=== PATIENT | female | born 1990 | race Caucasian/White ===

== ENCOUNTER 2017-04-03 19:11 | Emergency (ER) | payer OTHER ==
[2017-04-03 20:07] VITALS: BP 128/70
--- NOTE | 2017-04-03 20:40 | UC ---
Throat Pain/Nasal [place] HPI - HPI Summary HPI Summary: 26 yo female with sore throat x 3 days no fever no CHAVEZ or myalgias - History of Current Complaint Chief Complaint: UCGeneralIllness Stated Complaint: ST SINCE SUNDAY Time Seen by Provider: 04/03/17 20:06 Hx Obtained From: Patient Hx Last Menstrual Period: 12/16/13 Onset/Duration: Sudden Onset, Lasting Days Severity: Moderate Pain Intensity: 4 Pain Scale Used: 0-10 Numeric Cough: None - Epiglottits Risk Factors Epiglottis Risk Factors: Negative - Allergies/Home Medications Allergies/Adverse Reactions: Allergies Allergy/AdvReac Type Severity Reaction Status Date / Time No Known Allergies Allergy Verified 04/03/17 20:08 Home Medications: Home Medications Buprenorphine/Naloxone SL TAB* [Suboxone 8-2 mg SL TAB*] 0.25 tab SL QID [History Confirmed 04/03/17] PMH/Surg Hx/FS Hx/Imm Hx Previously Healthy: Yes - Surgical History Surgical History: Yes Surgery Procedure, Year, and Place: Right oopherectomy and tube removed s/p ectopic, 2010. Bowel obstruction - Family History Known Family History: Positive: Hypertension - Social History Alcohol Use: Rare Substance Use Type: None Substance Use Comment - Amount & Last Used: previous use of oxycodone Smoking Status (MU): Heavy Every Day Tobacco Smoker Type: Cigarettes Amount Used/How Often: 1/2 ppd Household Exposure Type: Cigarettes - Immunization History Most Recent Influenza Vaccination: 10/2013 Review of Systems Constitutional: Negative Skin: Negative Eyes: Negative ENT: Sore Throat Respiratory: Negative Cardiovascular: Negative Gastrointestinal: Negative Genitourinary: Negative Motor: Negative Neurovascular: Negative Musculoskeletal: Negative Neurological: Negative Psychological: Negative All Other Systems Reviewed And Are Negative: Yes Physical Exam Triage Information Reviewed: Yes Appearance: Well-Appearing, No Pain Distress, Well-Nourished Vital Signs: Initial Vital Signs Temp 98.3 F 04/03/17 20:05 Pulse 66 04/03/17 20:05 Resp 14 04/03/17 20:05 BP 128/70 04/03/17 20:05 Pulse Ox 99 04/03/17 20:05 Vital Signs Reviewed: Yes Eyes: Positive: Conjunctiva Clear ENT: Positive: Pharyngeal erythema. Negative: Nasal congestion, Nasal drainage , Tonsillar exudate, Trismus, Muffled/hoarse voice Dental: Positive: Other: - upper plate Neck: Positive: Supple, Nontender, No Lymphadenopathy Respiratory: Positive: Lungs clear, Normal breath sounds, No respiratory distress Cardiovascular: Positive: RRR, No Murmur Musculoskeletal Exam: Normal Neurological: Positive: Alert Psychological Exam: Normal Skin Exam: Normal Throat Pain/Nasal Course/Dx - Differential Dx/Diagnosis Provider Diagnoses: acute pharyngitis Discharge - Discharge Plan Condition: Stable Disposition: HOME Patient Education Materials: Pharyngitis (ED) Referrals: Non Staff,Doctor [Primary Care Provider] - Additional Instructions: recheck in 4 days if not better
== END 2017-04-03 21:21 | disposition home or self-care (01) ==
LOC: UCCORT 19:11
DX: J02.9 Acute pharyngitis, unspecified (principal); F17.210 Nicotine dependence, cigarettes, uncomplicated
CPT/HCPCS: 87651; 99201; G0463

== ENCOUNTER 2017-04-14 18:33 | Emergency (ER) | payer OTHER ==
[2017-04-14 19:02] VITALS: BP 112/55
--- NOTE | 2017-04-14 19:19 | UC ---
Skin Complaint HPI - HPI Summary HPI Summary: 26 y/o female presents to the urgent care c/o a bold spot on her scalp her noticed this morning. Pt states she Recently Dx with viral pharyngitis 1 week ago, strep was negative. She has a mild CHAVEZ 12/08. Pt is concern about lupus and possible thyroid condition. She reports she was Dx with hypothyrodism 5 years ago was taking medication, but after her thyroid levels were normal and DR told her to stop medication 3 years ago. Since then she hasn't done any blood work. Pt states she has an appt with PCP DR Daksha Membreno in 2 weeks, but would like blood work done today to r/o lupus. Pt also states she has myalgia and mild join pain. Denies fever, SOB, chest pain, N/V/D, urinary symptoms. - History of Current Complaint Chief Complaint: UCSkin Time Seen by Provider: 04/14/17 19:09 Stated Complaint: CHAVEZ,BODYACHES,SCALP COMPLAINT Hx Obtained From: Patient Hx Last Menstrual Period: 3 years ?: No Onset/Duration: Sudden Onset, Lasting Days, Still Present Skin Exposure Onset/Duration: Days Ago Timing: Constant Onset Severity: Mild Current Severity: Mild Pain Intensity: 0 Pain Scale Used: 0-10 Numeric Location: Other - Bold spot in the scalp Aggravating: Nothing Alleviating: Nothing Associated Signs & Symptoms: Negative: Nausea, Vomiting, Numbness, Thirst, Fever , Chills, Tenderness, Joint Swelling Related History: Other: - Hx of hypothyrodism - Allergy/Home Medications Allergies/Adverse Reactions: Allergies Allergy/AdvReac Type Severity Reaction Status Date / Time Acetaminophen Allergy Dizziness Verified 04/14/17 19:04 Review of Systems Constitutional: Negative, Other - body aches, Skin: Other - bold spot in the scalp Eyes: Negative ENT: Sore Throat Respiratory: Negative Cardiovascular: Negative Gastrointestinal: Negative Genitourinary: Negative Motor: Negative Neurovascular: Negative Musculoskeletal: Negative Neurological: Headache - mild All Other Systems Reviewed And Are Negative: Yes PMH/Surg Hx/FS Hx/Imm Hx Previously Healthy: Yes Endocrine History: Hypothyroidism Respiratory History: Asthma - Surgical History Surgical History: Yes Surgery Procedure, Year, and Place: Right tube removed s/p ectopic, 2010. Bowel obstruction - Family History Known Family History: Positive: Cardiac Disease, Hypertension, Other Family History: Lupus - Social History Occupation: Employed Full-time Lives: With Family Alcohol Use: None Substance Use Type: None Substance Use Comment - Amount & Last Used: previous use of oxycodone Smoking Status (MU): Heavy Every Day Tobacco Smoker Type: Cigarettes Amount Used/How Often: 1/2 ppd Household Exposure Type: Cigarettes - Immunization History Most Recent Influenza Vaccination: 10/2013 Physical Exam Triage Information Reviewed: Yes Appearance: Well-Appearing, No Pain Distress, Well-Nourished, Thin Vital Signs: Initial Vital Signs Temp 98.1 F 04/14/17 18:51 Pulse 67 04/14/17 18:51 Resp 18 04/14/17 18:51 BP 112/55 04/14/17 18:51 Pulse Ox 100 04/14/17 18:51 Vital Signs Reviewed: Yes Eye Exam: Normal Eyes: Positive: Conjunctiva Clear - PERRLA, EOMI, fundi grossly normal ENT Exam: Normal ENT: Positive: Normal ENT inspection, Hearing grossly normal, Pharyngeal erythema - bilaterally no exudate, TMs normal, Tonsillar swelling Dental Exam: Normal Neck exam: Normal Neck: Positive: Supple, Nontender, No Lymphadenopathy Respiratory Exam: Normal Respiratory: Positive: Chest non-tender, Lungs clear, Normal breath sounds Cardiovascular Exam: Normal Cardiovascular: Positive: RRR, No Murmur, Pulses Normal, Brisk Capillary Refill Abdominal Exam: Normal Abdomen Description: Positive: Nontender, No Organomegaly, Soft. Negative: CVA Tenderness (R), CVA Tenderness (L) Bowel Sounds: Positive: Present Musculoskeletal Exam: Normal Musculoskeletal: Positive: Strength Intact, ROM Intact, No Edema Neurological Exam: Normal Psychological Exam: Normal Skin: Positive: Other - Postive patchy hair loss at the coronal area of the scalp. No erythema, swelling, no central clearing or scaling, non tender on palpation, no demarcated border observed, no exclamation point hairs observed. Course/Dx - Course Course Of Treatment: 26 y/o female presents to the urgent care c/o a bold spot on her scalp her noticed this morning. Pt states she Recently Dx with viral pharyngitis 1 week ago, strep was negative. She has a mild CHAVEZ 3/10. Pt is concern about lupus and possible thyroid condition. She reports she was Dx with hypothyrodism 5 years ago was taking medication, but after her thyroid levels were normal and told her to stop medication 3 years ago. Since then she hasn't done any blood work. Pt states she has an appt with PCP DR Daksha Membreno in 2 weeks, but would like blood work done today to r/o lupus. Pt also states she has myalgia and mild join pain. Denies fever, SOB, chest pain, N/V/D, urinary symptoms. Hx obtained. PE abnormal findings: Head: Postive patchy hair loss at the coronal area of the scalp. No erythema, swelling , no central clearing or scaling, non tender on palpation, no demarcated border observed, no exclamation point hairs observed. Most likely Alopecia. ENT: Positive: Normal ENT inspection, Hearing grossly normal, Pharyngeal erythema - bilaterally no exudate, TMs normal, Tonsillar swelling. Pt recently Dx with Viral pharyngitis. Pt advised to take ibuprofen OTC prn to alleviate symptom of pharyngitis. increase fluid intake and rest. Alopecia: Pt advised to f/u with her PCP DR Daksha Membreno for further evaluation, blood work in her hypothyrodism. Pt understood and agreed. Left the clinic ambulating. - Differential Diagnoses - Skin Complaint Differential Diagnoses: Allergic Reaction, Eczema, Tinea, Urticaria, Other - Alopecia areata, tinea capitis, - Diagnoses Provider Diagnoses: 1- Alopecia. 2-Viral pharyngitis - Physician Notification/Consults Discussed Patient Care With: Rubin Holder - Dr Holder agreed with Pt's care and treatment Discharge - Discharge Plan Condition: Stable Disposition: HOME Patient Education Materials: Pharyngitis (ED) Referrals: [facility] [Outside] - 2 Weeks Non Staff,Doctor [Primary Care Provider] - Additional Instructions: PLease take ibuprofen prn q6-8hrs to alleviate symptoms of viral pharyngitis, increase fluid intake and rest. For your Alopecia f/u with you PCP DR Daksha Morrow for further evaluation and treatment.
== END 2017-04-14 19:50 | disposition home or self-care (01) ==
LOC: UCCORT 18:33
DX: L65.9 Nonscarring hair loss, unspecified (principal); J02.8 Acute pharyngitis due to other specified organisms; E03.9 Hypothyroidism, unspecified; J45.909 Unspecified asthma, uncomplicated; F17.210 Nicotine dependence, cigarettes, uncomplicated
CPT/HCPCS: 99211; G0463

== ENCOUNTER 2017-06-29 21:13 | Emergency (ER) | payer OTHER ==
--- NOTE | 2017-06-29 21:18 | UC ---
Pediatric Resp HPI - HPI Summary HPI Summary: 26 YEAR OLD FEMALE PRESENTS WITH COMPLAINS OF COUGH, NASAL CONGESTION, AND SORE THROAT. - History Of Current Complaint Stated Complaint: SORE THROAT,PRODUCTIVE COUGH Time Seen by Provider: 06/29/17 21:18 Hx Obtained From: Patient Onset/Duration: Sudden Onset Timing: Intermittent, Lasting: Severity Initially: Moderate Severity Currently: Moderate Location: Nose, Throat Character: Dry Cough Aggravating Factor(s): Nothing - Allergies/Home Medications Allergies/Adverse Reactions: Allergies Allergy/AdvReac Type Severity Reaction Status Date / Time Acetaminophen Allergy Dizziness Verified 06/29/17 21:31 Home Medications: Home Medications Benzocaine/Menthol GLORIA* [Chloraseptic GLORIA*] 1 [place] Q2H PRN 06/29/17 [History Confirmed 06/29/17] Past Medical History Respiratory History: Yes: Asthma Chronic Illness History: No: Diabetes - Family History Family History: Lupus Review Of Systems Constitutional: Negative Eyes: Negative ENT: Throat Pain Cardiovascular: Negative Respiratory: Cough Gastrointestinal: Negative Genitourinary: Negative Musculoskeletal: Negative Skin: Negative Neurological: Negative Psychological: Negative All Other Systems Reviewed And Are Negative: Yes Physical Exam Triage Information Reviewed: Yes Vital Signs Reviewed: Yes Appearance: Well-Appearing Eyes: Positive: Normal ENT: Positive: Pharyngeal erythema, Nasal congestion, Nasal drainage Abdomen Description: Positive: Soft, Nontender, 4, No Organomegaly Neurological: Positive: Normal Psychological: Positive: Normal Pediatric Resp Course/Dx - Differential Dx/Diagnosis Provider Diagnoses: PHARYNGITIS. POST NASAL DRIP Discharge - Discharge Plan Condition: Stable Disposition: HOME Prescriptions: GuaiFENesin DM* [Robitussin DM*] 5 ml PO Q6H PRN #120 ml PRN Reason: Cough LoraTADine TAB(NF) [Claritin 10 MG TAB(NF)] 10 mg PO DAILY #30 tab Patient Education Materials: Allergic Rhinitis (ED), Allergies (ED) Referrals: Non Staff,Doctor [Medical Doctor] - Respiratory Complaint HPI - HPI Summary HPI Summary: 26 YEAR OLD FEMALE PRESENTS WITH COMPLAINS OF COUGH, NASAL CONGESTION, AND SORE THROAT. - History of Current Complaint Chief Complaint: UCGeneralIllness Stated Complaint: SORE THROAT,PRODUCTIVE COUGH Time Seen by Provider: 06/29/17 21:18 Hx Obtained From: Patient Hx Last Menstrual Period: states she hasn't had one in years Pain Intensity: 0 Pain Scale Used: 0-10 Numeric - Allergies/Home Medications Allergies/Adverse Reactions: Allergies Allergy/AdvReac Type Severity Reaction Status Date / Time Acetaminophen Allergy Dizziness Verified 06/29/17 21:31 Home Medications: Home Medications Benzocaine/Menthol GLORIA* [Chloraseptic GLORIA*] 1 [place] Q2H PRN 06/29/17 [History Confirmed 06/29/17]
[2017-06-29 21:37] VITALS: BP 127/68
== END 2017-06-29 22:32 | disposition home or self-care (01) ==
LOC: UCCORT 21:13
DX: J02.9 Acute pharyngitis, unspecified (principal); R09.82 Postnasal drip; J45.909 Unspecified asthma, uncomplicated; Z88.6 Allergy status to analgesic agent
CPT/HCPCS: 87651; 99212; G0463

== ENCOUNTER 2018-07-06 13:17 | Emergency (ER) | payer OTHER ==
[2018-07-06 14:38] VITALS: BP 118/75
--- NOTE | 2018-07-06 14:58 | ED ---
Skin Complaint - HPI Summary HPI Summary: patient complaining of spots in her nares, whitish spots, had been putting neosporin in her nose to treat those, in addition she has felt poorly, denies fever or chills, hx. of painful external portion of her nose on the left side after placing a nose ring she has developed pain and swelling . she has noted a tender supraclavicular node on that side as well. - History of Current Complaint Chief Complaint: UCSkin Time Seen by Provider: 07/06/18 14:37 Stated Complaint: SKIN CONCERN - NOSE/NECK Hx Obtained From: Patient Hx Last Menstrual Period: states she hasn't had one in years Onset/Duration: Started Weeks Ago Timing: Constant Onset Severity: Moderate Current Severity: Moderate Pain Intensity: 8 Skin Location: Nose Aggravating Symptom(s): Nothing Alleviating Symptom(s): Nothing Associated Signs & Symptoms: Negative - Allergy/Home Medications Allergies/Adverse Reactions: Allergies Allergy/AdvReac Type Severity Reaction Status Date / Time acetaminophen Allergy Dizziness Verified 07/06/18 14:38 Home Medications: Home Medications Gabapentin CAP(*) [Neurontin 300 CAP(*)] 300 mg PO TID 07/06/18 [History Confirmed 07/06/18] PMH/Surg Hx/FS Hx/Imm Hx Previously Healthy: Yes Endocrine/Hematology History: Reports: Hx Thyroid Disease - Hypothyroidism (not taking medications) Denies: Hx Diabetes Respiratory History: Reports: Hx Asthma - Surgical History Surgery Procedure, Year, and Place: Right tube removed s/p ectopic, 2010. Bowel obstruction Infectious Disease History: No Infectious Disease History: Denies: Traveled Outside the [place] in Last 30 Days - Family History Known Family History: Positive: Cardiac Disease, Hypertension, Other Family History: Lupus - Social History Alcohol Use: None Substance Use Type: Reports: None Substance Use Comment - Amount & Last Used: previous use of oxycodone Smoking Status (MU): Heavy Every Day Tobacco Smoker Type: Cigarettes Amount Used/How Often: 1/2 ppd Review of Systems Constitutional: Negative Eyes: Negative ENT: Negative Cardiovascular: Negative Respiratory: Negative Gastrointestinal: Negative Genitourinary: Negative Musculoskeletal: Negative Skin: Other - pustular lesion left nares Neurological: Negative Psychological: Normal All Other Systems Reviewed And Are Negative: Yes Physical Exam Triage Information Reviewed: Yes Vital Signs On Initial Exam: Initial Vitals Temp Pulse Resp BP Pulse Ox 36.9 C 71 16 118/75 100 07/06/18 14:32 07/06/18 14:32 07/06/18 14:32 07/06/18 14:32 07/06/18 14:32 Vital Signs Reviewed: Yes Appearance: Positive: Well-Appearing Skin: Positive: Warm - pustular lesion on the left nose externally Eyes: Positive: Normal ENT: Positive: Normal ENT inspection, Pharynx normal Neck: Positive: Supple - left supraclavicular node Respiratory/Lung Sounds: Positive: Clear to Auscultation Cardiovascular: Positive: Normal Abdomen Description: Positive: Nontender Bowel Sounds: Positive: Present Diagnostics - Vital Signs Vital Signs Temp Pulse Resp BP Pulse Ox 07/06/18 14:32 36.9 C 71 16 118/75 100 - Laboratory Lab Statement: Any lab studies that have been ordered have been reviewed, and results considered in the medical decision making process. Course/Dx - Diagnoses Provider Diagnoses: Pustule of nostril Discharge - Sign-Out/Discharge Documenting (check all that apply): Patient Departure All imaging exams completed and their final reports reviewed: Yes - Discharge Plan Condition: Good Disposition: HOME Prescriptions: Doxycycline Hyclate 100 mg PO BID #14 tablet Patient Education Materials: Furunculosis and Carbunculosis (ED) Referrals: Daksha Membreno MD [Primary Care Provider] - - Billing Disposition and Condition Condition: GOOD Disposition: Home
== END 2018-07-06 15:06 | disposition home or self-care (01) ==
LOC: UCCORT 13:17
DX: L08.9 Local infection of the skin and subcutaneous tissue, unspecified (principal); Z88.6 Allergy status to analgesic agent; F17.210 Nicotine dependence, cigarettes, uncomplicated
CPT/HCPCS: 99212; G0463

== ENCOUNTER 2018-09-23 15:46 | Emergency (ER) | payer OTHER ==
[2018-09-23 17:25] VITALS: BP 121/64
--- NOTE | 2018-09-23 18:30 | UC ---
Respiratory Complaint HPI - HPI Summary HPI Summary: 3 days of cough, congestion, ST, headache and overall malaise. No fever, nausea /vomiting. - History of Current Complaint Chief Complaint: UCGeneralIllness Stated Complaint: COUGH,RUNNY NOSE,ST Time Seen by Provider: 09/23/18 17:31 Hx Obtained From: Patient Hx Last Menstrual Period: 09/09/18 Onset/Duration: Gradual Onset, Lasting Days, Still Present Timing: Constant Severity Initially: Moderate Severity Currently: Moderate Pain Intensity: 6 Pain Scale Used: 0-10 Numeric Character: Cough: Nonproductive Aggravating Factors: Nothing Alleviating Factors: Nothing Associated Signs And Symptoms: Positive: URI, Nasal Congestion. Negative: Dyspnea, Fever, Wheezing - Allergies/Home Medications Allergies/Adverse Reactions: Allergies Allergy/AdvReac Type Severity Reaction Status Date / Time acetaminophen Allergy Dizziness Verified 07/06/18 14:38 PMH/Surg Hx/FS Hx/Imm Hx Endocrine History: Thyroid Disease Respiratory History: Asthma - Surgical History Surgical History: Yes Surgery Procedure, Year, and Place: Right tube removed s/p ectopic, 2010. Bowel obstruction - Family History Known Family History: Positive: Cardiac Disease, Hypertension, Other Family History: Lupus - Social History Alcohol Use: None Substance Use Type: None Substance Use Comment - Amount & Last Used: previous use of oxycodone Smoking Status (MU): Heavy Every Day Tobacco Smoker Type: Cigarettes Amount Used/How Often: 1/2 ppd Household Exposure Type: Cigarettes - Immunization History Most Recent Influenza Vaccination: 10/2013 Review of Systems All Other Systems Reviewed And Are Negative: Yes Constitutional: Positive: Negative ENT: Positive: Sore Throat, Nasal Discharge Respiratory: Positive: Cough Cardiovascular: Positive: Negative Gastrointestinal: Positive: Negative Neurological: Positive: Headache Physical Exam Triage Information Reviewed: Yes Appearance: Well-Appearing, No Pain Distress, Well-Nourished Vital Signs: Initial Vital Signs Temp 99.1 F 09/23/18 17:23 Pulse 84 09/23/18 17:23 Resp 19 09/23/18 17:23 BP 121/64 09/23/18 17:23 Pulse Ox 98 09/23/18 17:23 Vital Signs Reviewed: Yes Eyes: Positive: Conjunctiva Clear ENT: Positive: Hearing grossly normal, Pharynx normal, TMs normal Neck: Positive: Supple, Nontender, No Lymphadenopathy Respiratory Exam: Normal Cardiovascular Exam: Normal Abdomen Description: Positive: Soft Musculoskeletal: Positive: No Edema Neurological: Positive: Alert Psychological: Positive: Age Appropriate Behavior Skin: Negative: Rashes UC Diagnostic Evaluation - Laboratory O2 Sat by Pulse Oximetry: 98 Respiratory Course/Dx - Differential Dx/Diagnosis Provider Diagnosis: Upper respiratory infection Discharge - Sign-Out/Discharge Documenting (check all that apply): Patient Departure All imaging exams completed and their final reports reviewed: No Studies - Discharge Plan Condition: Stable Disposition: HOME Patient Education Materials: Upper Respiratory Infection (ED) Referrals: Daksha Membreno MD [Primary Care Provider] - If Needed Additional Instructions: YOUR SYMPTOMS ARE LIKELY VIRALLY MEDIATED AND SHOULD RESOLVE ON THEIR OWN WITH TIME. NO INDICATION FOR ANTIBIOTICS AT PRESENT. REST, HYDRATE, OTC MEDS NEEDED. SEEK FOLLOW-UP IF YOU ARE NOT IMPROVING OVER THE NEXT 1-2 WEEKS. QUIT SMOKING! - Billing Disposition and Condition Condition: STABLE Disposition: Home
== END 2018-09-23 18:00 | disposition home or self-care (01) ==
LOC: UCCORT 15:46
DX: J06.9 Acute upper respiratory infection, unspecified (principal); Z88.6 Allergy status to analgesic agent; F17.210 Nicotine dependence, cigarettes, uncomplicated
CPT/HCPCS: 99211; G0463

== ENCOUNTER 2019-06-04 17:38 | Emergency (ER) | payer OTHER ==
[2019-06-04 18:33] VITALS: BP 113/57
[2019-06-04] MEDS: Albuterol 2.5 MG/3 ML NEB.SOL* (0.083%) INH ONE (19:05)
[2019-06-04] MEDS: Ipratropium 0.5MG/2.5ML NEB* 0.5 MG/2.5 ML NEB.SOLN INH ONE (19:05)
--- NOTE | 2019-06-04 19:07 | UC ---
Respiratory Complaint HPI - HPI Summary HPI Summary: 28 yo female with cough x 1 month using rescue inhaler symptoms worsening past two days sore throat feverish chills chest tightness and today pulled a muscle in her chest - History of Current Complaint Chief Complaint: UCRespiratory Stated Complaint: COUGH/SORE THROAT/CONGESTION Time Seen by Provider: 06/04/19 18:34 Hx Obtained From: Patient Hx Last Menstrual Period: 05/20/19 Onset/Duration: Gradual Onset, Lasting Weeks Timing: Constant Severity Initially: Mild Severity Currently: Moderate Pain Intensity: 5 Pain Scale Used: 0-10 Numeric Character: Cough: Productive, Sputum Description: - yellow/green Aggravating Factors: Deep Breaths Associated Signs And Symptoms: Positive: Fever - sean, Chills, Nasal Congestion, Hoarseness - Allergies/Home Medications Allergies/Adverse Reactions: Allergies Allergy/AdvReac Type Severity Reaction Status Date / Time acetaminophen Allergy See Comment Verified 06/04/19 18:26 PMH/Surg Hx/FS Hx/Imm Hx Previously Healthy: Yes Respiratory History: Asthma, Bronchitis - Surgical History Surgical History: Yes Surgery Procedure, Year, and Place: Right tube removed s/p ectopic, 2010. Bowel obstruction - Family History Known Family History: Positive: Cardiac Disease, Hypertension, Other Family History: Lupus - Social History Alcohol Use: None Substance Use Type: None Substance Use Comment - Amount & Last Used: previous use of oxycodone Smoking Status (MU): Heavy Every Day Tobacco Smoker Type: Cigarettes Amount Used/How Often: 1/2 ppd Household Exposure Type: Cigarettes - Immunization History Most Recent Influenza Vaccination: 10/2013 Most Recent Tetanus Shot: UTD Review of Systems All Other Systems Reviewed And Are Negative: Yes Constitutional: Positive: Fever - past day or two, Chills - past day or two, Fatigue ENT: Positive: Sore Throat, Nasal Discharge, Sinus Congestion, Sinus Pain/ Tenderness Respiratory: Positive: Cough Cardiovascular: Positive: Chest Pain - today with deep breath Gastrointestinal: Positive: Negative Motor: Positive: Negative Neurovascular: Positive: Negative Musculoskeletal: Positive: Negative Neurological: Positive: Negative Psychological: Positive: Negative Physical Exam Triage Information Reviewed: Yes Appearance: Well-Appearing, No Pain Distress, Well-Nourished Vital Signs: Initial Vital Signs Temp 97.5 F 06/04/19 18:28 Pulse 61 06/04/19 18:28 Resp 16 06/04/19 18:28 BP 113/57 06/04/19 18:28 Pulse Ox 100 06/04/19 18:28 Vital Signs Reviewed: Yes Eyes: Positive: Conjunctiva Clear ENT: Positive: Hearing grossly normal, Nasal congestion, TM bulging - Left, Tonsillar swelling, Uvula midline. Negative: Nasal drainage, Trismus, Muffled voice, Hoarse voice, Sinus tenderness Neck: Positive: Supple, Nontender, No Lymphadenopathy Respiratory: Positive: Lungs clear, Normal breath sounds, No respiratory distress, No accessory muscle use. Negative: Chest non-tender Cardiovascular: Positive: RRR, No Murmur Musculoskeletal: Positive: ROM Intact, No Edema Neurological: Positive: Alert Psychological Exam: Normal Skin Exam: Normal Re-Evaluation - Re-Evaluation First Eval Re-Evaluation Time: 19:45 Change: Improved - markedly improved, chest discomfort better, better air movement Respiratory Course/Dx - Differential Dx/Diagnosis Provider Diagnosis: Acute bronchitis with bronchospasm Discharge ED - Sign-Out/Discharge Documenting (check all that apply): Patient Departure All imaging exams completed and their final reports reviewed: No Studies - Discharge Plan Condition: Stable Disposition: HOME Patient Education Materials: Acute Bronchitis (ED), How to Use a Metered-Dose Inhaler and a Spacer (ED) Referrals: Daksha Membreno MD [Primary Care Provider] - 1 Week Additional Instructions: take remaining prednisone doses in AMs - Billing Disposition and Condition Condition: STABLE Disposition: Home
[2019-06-04] MEDS: Albuterol HFA INHALER* 8 gm MDI INH ONE (19:56)
[2019-06-04] MEDS: Amoxicillin PO (*) 500 MG CAP PO ONE (19:58)
[2019-06-04] MEDS: predniSONE TAB* 20 MG PO ONE (19:58)
== END 2019-06-04 20:01 | disposition home or self-care (01) ==
LOC: UCCORT 17:38
DX: J20.9 Acute bronchitis, unspecified (principal); J45.909 Unspecified asthma, uncomplicated; F17.210 Nicotine dependence, cigarettes, uncomplicated
CPT/HCPCS: 87651; 99213; A9270-GY; G0463; J7512

== ENCOUNTER 2019-11-02 16:18 | Emergency (ER) | payer OTHER ==
--- OUTSIDE RECORDS SUMMARY | 2019-11-02 18:05 | XMS REPORT | Continuity of Care Document ---
:1990 External Reference #:[id number] Author Name Clinton Grimaldo M.D. (transmitted by agent of provider Cherri Vega) Address [address] [place] [address] Care Team Providers Name Role Phone Sabina Silverio M.D. - Family Medicine Care Team Information Tub Washer Problems Description No Information Available Social History Type Date Description Comments Sex Unknown Tobacco Use Start: Unknown Light tobacco smoker (10 or fewer cigarettes/day) ETOH Use Rare Use Of Alcohol Recreational Drug Use Never Used Drugs Allergies, Adverse Reactions, Alerts Active Allergies Reaction Severity Comments Date Tylenol liver function issues Moderate 07/31/2019 Medications Active Medications SIG Qnty Indications Ordering Provider Date Suboxone 8-2mg Unknown Film History Medications Clindamycin HCL 1 by mouth twice 10caps Clinton Grimaldo, 07/31/2019 - 300mg a day x 5 days M.D. 09/16/2019 Capsules Mupirocin apply around the 1units Clinton Grimaldo, 07/31/2019 - 2% Ointment nose twice daily M.D. 09/16/2019 2 weeks Immunizations Description No Information Available Vital Signs Date Vital Result Comment 09/17/2019 9:53am Weight 115.00 lb Height 60 inches 5'0" BMI (Body Mass Index) 22.5 kg/m2 BP Systolic 131 mmHg BP Diastolic 78 mmHg Heart Rate 76 /min O2 % BldC Oximetry 97 % Body Temperature 97.5 F Pain Level 0 07/31/2019 10:17am Weight 115.00 lb Height 60 inches 5'0" BMI (Body Mass Index) 22.5 kg/m2 BP Systolic 101 mmHg BP Diastolic 69 mmHg Heart Rate 54 /min O2 % BldC Oximetry 99 % Body Temperature 98.1 F Pain Level 4 Results Test Acquired Date Facility Test Result H/L Range Note Wound 07/31/2019 [facility] Wound/Misc SEE RESULT 1 [facility] [address] [place] [address] Stain [phone] Wound 07/31/2019 [facility] Wound/Misc SEE RESULT 2 [facility] [address] [place] [address] Stain [phone] 1 SEE RESULT BELOW Name: SHALINI SMITH : [address]: Clinton Grimaldo MD Acct: [id number] Unit: [id number] AGE: 28 Location: [facility] Re07/31/19 SEX: F Status: REG REF SPEC: [id number] SLIME: 07/31/19-[address] [facility] [address]: Clinton Grimaldo MD REQ: [id number] RECD: 07/31/19 STATUS: COMP _ SOURCE: [facility] SPDESC: ORDERED: Culture Stain COMMENTS: [id number] Specimen Description left nasal lesion Procedure Result Reported Site Wound/Misc Gram Stain Final 08/01/19- 0844 ML No Neutrophils Observed 2+ Epithelial Cells 3+ Gram Positive Bacilli 3+ Gram Positive Cocci 3+ Gram Negative Bacilli Wound/Misc Culture Final 08/03/19- 0950 ML Organism 1 MRSA Quantity 2+ Organism 2 NORMAL NISHANT Quantity 3+ 1. MRSA M.I.C. RX --------- ------ Penicillin >=0.5 R Clindamycin <=0.25 S Erythromycin >=8 R Gentamicin <=0.5 S Linezolid 1 S Oxacillin >=4 R * Quinupristin/Dalfopristin <=0.25 S Rifampin <=0.5 S Tetracycline <=1 S Doxycycline - Deduced S * Minocycline - Deduced S CONTINUED ON NEXT PAGE DEPARTMENT OF PATHOLOGY, [address] [place] [address] London Cerda M.D. Director GIRISH # [id number] Patient: SHALINI SMITH [id number] (Continued) Specimen: [id number] Collected: 07/31/19 Received: 07/31/19 (Continued) Procedure Result Reported Site Wound/Misc Culture Final (continued) 08/03/19949 1. MRSA (continued) M.I.C. RX --------- ------ Trimethoprim/Sulfamethoxazole <=10 S Vancomycin 1 S Imipenem-Deduced R * Ampicillin/Sulbactam-Deduced R Cefazolin-Deduced R * These antibiotics are not available in the [facility] Formulary Contact the Microbiology Department for any additional antibiotic reporting. * ML - Main Lab . END OF REPORT DEPARTMENT OF PATHOLOGY, [address] [place] [address] London Cerda M.D. Director [facility] # [id number] 2 SEE RESULT BELOW Name: SHALINI SMITH : [address]: Clinton Grimaldo MD Acct: [id number] Unit: [id number] AGE: 28 Location: [facility] Re07/31/19 SEX: F Status: REG REF SPEC: [id number] SLIME: 07/31/[address] [facility] [address]: Clinton Grimaldo MD REQ: [id number] RECD: 07/31/19 STATUS: COMP _ SOURCE: [facility] SPDESC: ORDERED: Culture Stain COMMENTS: [id number] Specimen Description right nasal lesion Procedure Result Reported Site Wound/Misc Gram Stain Final 08/01/19- 43 ML No Neutrophils Observed 2+ Epithelial Cells 4+ Gram Positive Bacilli 4+ Gram Positive Cocci 3+ Gram Negative Bacilli Wound/Misc Culture Final 08/03/19- 48 ML Organism 1 MRSA Quantity 2+ Organism 2 NORMAL NISHANT Quantity 3+ 1. MRSA M.I.C. RX --------- ------ Penicillin >=0.5 R Clindamycin <=0.25 S Erythromycin >=8 R Gentamicin <=0.5 S Linezolid 1 S Oxacillin >=4 R * Quinupristin/Dalfopristin <=0.25 S Rifampin <=0.5 S Tetracycline <=1 S Doxycycline - Deduced S * Minocycline - Deduced S CONTINUED ON NEXT PAGE DEPARTMENT OF PATHOLOGY, [address] [place] [address] London Cerda M.D. Director [facility] # [id number] Patient: SHALINI SMITH [id number] (Continued) Specimen: [id number] Collected: 07/31/19 Received: 07/31/19 (Continued) Procedure Result Reported Site Wound/Misc Culture Final (continued) 08/03/19947 1. MRSA (continued) M.I.C. RX --------- ------ Trimethoprim/Sulfamethoxazole <=10 S Vancomycin 1 S Imipenem-Deduced R * Ampicillin/Sulbactam-Deduced R Cefazolin-Deduced R * These antibiotics are not available in the [facility] Formulary Contact the Microbiology Department for any additional antibiotic reporting. * ML - Main Lab . END OF REPORT DEPARTMENT OF PATHOLOGY, [address] [place] [address] London Cerda M.D. Director [facility] # [id number] Procedures Description No Information Available Medical Devices Description No Information Available Encounters Type Date Location Provider Dx Diagnosis Office Visit 07/31/2019 Main Office Clinton Grimaldo M.D. J34.81 Nasal mucositis 10:00a (ulcerative) J34.2 Deviated nasal septum Assessments Date Code Description Provider 07/31/2019 J34.81 Nasal mucositis (ulcerative) Clinton Grimaldo M.D. 07/31/2019 J34.2 Deviated nasal septum lCinton Grimaldo M.D. Plan of Treatment No Information Available Functional Status Description No Information Available Mental Status Description No Information Available Referrals Description No Information Available
--- OUTSIDE RECORDS SUMMARY | 2019-11-02 18:05 | XMS REPORT | Summary of Care ---
:1990 Author Organization [facility] Address [address] [place] [address] Support Name Relationship Address Phone Caitlin Smith Unavailable 10/02 TAMMIE [phone] [place] [address] Care Team Providers Name Role Phone Pcp, No Primary Care Provider Unavailable Reason for Visit Reason Comments Cough Encounter Details Date Type Department Care Team Description 10/26/2019 Emergency PEDIATRIC EMERGENCY Karo Cheng DO Cough (Primary Dx) DEPARTMENT [address] [facility] [address] [place] [address] [place] [id number] Allergies Active Allergy Reactions Severity Noted Date Comments Acetaminophen 08/06/2019 documented as of this encounter (statuses as of 10/26/2019) Medications Medication Sig Dispensed Refills Start Date End Date Status Buprenorphine USE 2 FILMS 0 12/10/2018 Active HCl-Naloxone HCl 8-2 SUBLINGUALLY DAILY MG Sublingual Film (SUBOXONE) NIFEdipine ER Take 1 tablet by 30 tablet 5 08/11/2019 08/09/2020 Active Osmotic Release 30 mouth daily MG Oral Tablet Extended Release 24 Hour (PROCARDIA XL)Indications: Raynaud's disease without gangrene documented as of this encounter (statuses as of 10/26/2019) Active Problems Problem Noted Date Positive JOANNA (antinuclear antibody) 08/11/2019 Pain in both hands 08/11/2019 Chronic pain of both knees 08/11/2019 Chronic bilateral low back pain with bilateral sciatica 08/11/2019 Raynaud's disease without gangrene 08/11/2019 documented as of this encounter (statuses as of 10/26/2019) Social History Tobacco Use Types Packs/Day Years Used Date Current Every Day Smoker Cigarettes 0 Smokeless Tobacco: Never Used Alcohol Use Drinks/Week oz/Week Comments Never Alcohol Habits Answer Date Recorded How often do you have a drink containing alcohol? Never 08/11/2019 How many drinks containing alcohol do you have on a typical Not asked day when you are drinking? How often do you have six or more drinks on one occasion? Not asked Sex Assigned at Date Recorded Not on file Job Start Date Occupation Industry Not on file Not on file Not on file Travel History Travel Start Travel End No recent travel history available. documented as of this encounter Last Filed Vital Signs Vital Sign Reading Time Taken Comments Blood Pressure 117/72 10/26/2019 6:24 PM EST Pulse 69 10/26/2019 6:24 PM EST Temperature 36.8 10/26/2019 6:24 PM EST C (98.3 F) Respiratory Rate 16 10/26/2019 6:24 PM EST Oxygen Saturation 98% 10/26/2019 6:24 PM EST Inhaled Oxygen Concentration - - Weight 53.1 kg (117 lb) 10/26/2019 6:24 PM EST Height 154.9 cm (5' 1") 10/26/2019 6:24 PM EST Body Mass Index 22.11 10/26/2019 6:24 PM EST documented in this encounter Discharge Instructions AttachmentsThe following attachments cannot be sent through Care Everywhere.Bronchitis, Acute ([place])documented in this encounter Plan of Treatment Date Type Specialty Care Team Description 11/10/2019 Office Visit Rheumatology Gloria Van MD [address] [place] [address] [address] [place] [address] [phone] Health Maintenance Due Date Last Done Comments MMR Vaccines (1 of 1 - Standard 1990 series) Varicella Vaccines (1 of 2 - 1990 2-dose childhood series) Pneumococcal Vaccine: Pediatrics 12/16/1995 (0 to 5 Years) and At-Risk Patients (6 to 64 Years) (1 of 1 - PPSV23) HIV Screening 2002 Cervical Cancer Screening 3 years 2010 DTaP,Tdap,and Td Vaccines (2 - Td) 10/07/2014 09/09/2014 Influenza Vaccine 07/01/2019 Pneumococcal Vaccine: 65+ Years (1 2054 of 2 - PCV13) HIB Vaccines Aged Out No longer eligible based on patient's age to complete this topic Hepatitis A Vaccines Aged Out No longer eligible based on patient's age to complete this topic Hepatitis B Vaccines Aged Out No longer eligible based on patient's age to complete this topic IPV Vaccines Aged Out No longer eligible based on patient's age to complete this topic documented as of this encounter Results Not on filedocumented in this encounter Visit Diagnoses Diagnosis Cough - Primary documented in this encounter Administered Medications Medication Order MAR Action Action Date Dose Rate Site dexamethasone sodium Given 10/26/2019 6:35 PM 10 mg Right Deltoid phosphate (DECADRON) 10 EST MG/ML PF injection 10 mg 10 mg, Intramuscular, Once, 10/26/19 at 1830, For 1 dose ipratropium-albuterol (DUONEB) 0.5-2.5 (3) Given 10/26/2019 6:35 PM EST 3 mLs MG/3ML nebulizer solution 3 mL 3 mL, Nebulization, Once, 10/26/19 at 1830, For 1 dose, For Adults Q8 Hours is Hospital Standard, all orders will be changed to this unless ELISA is selected 'Yes' below., documented in this encounter
[2019-11-02 18:22] VITALS: BP 117/65
[2019-11-02] MEDS ORDERED: Albuterol 2.5 MG/3 ML NEB.SOL* (0.083%) INH ONE (18:33)
--- NOTE | 2019-11-02 18:35 | UC ---
UC General HPI - HPI Summary HPI Summary: concern for productive cough with pleuritic pain over the past few days. Initially right sided pleuritic pain and now left sided pain - feels shortness of breath. Never used an inhaler in the past. Admits to >1/2 ppd. No fever. No lower ext swelling. No N/V/D. States she uses suboxone due to chronic pain. denies history of IVDU. No rash Meds; Reviewed - History of Current Complaint Chief Complaint: UCRespiratory Stated Complaint: COUGH/CONGESTION Time Seen by Provider: 11/02/19 18:23 Hx Last Menstrual Period: 10/24/19 Pain Intensity: 5 - Allergy/Home Medications Allergies/Adverse Reactions: Allergies Allergy/AdvReac Type Severity Reaction Status Date / Time acetaminophen Allergy See Comment Verified 11/02/19 18:14 Home Medications: Home Medications Hydroxychloroquine TAB* [Plaquenil TAB*] 1 tab DAILY 11/02/19 [History Confirmed 11/02/19] NIFEdipine ER TAB* [Procardia Xl TAB*] 1 tab DAILY 11/02/19 [History Confirmed 11/02/19] PMH/Surg Hx/FS Hx/Imm Hx Previously Healthy: Yes - Surgical History Surgical History: Yes Surgery Procedure, Year, and Place: Right tube removed s/p ectopic, 2010. Bowel obstruction - Family History Known Family History: Positive: Cardiac Disease, Hypertension, Other Family History: Lupus - Social History Alcohol Use: None Substance Use Type: None Substance Use Comment - Amount & Last Used: previous use of oxycodone Smoking Status (MU): Heavy Every Day Tobacco Smoker Type: Cigarettes Amount Used/How Often: 1/2 ppd Household Exposure Type: Cigarettes - Immunization History Most Recent Influenza Vaccination: 10/2013 Most Recent Tetanus Shot: UTD Review of Systems All Other Systems Reviewed And Are Negative: Yes ENT: Positive: Sore Throat, Sinus Congestion Respiratory: Positive: Shortness Of Breath, Cough Cardiovascular: Positive: Chest Pain Gastrointestinal: Positive: Negative Physical Exam Triage Information Reviewed: Yes Appearance: Other: - mildly ill appearing Vital Signs: Initial Vital Signs Temp 98.9 F 11/02/19 18:16 Pulse 77 11/02/19 18:16 Resp 16 11/02/19 18:16 BP 117/65 11/02/19 18:16 Pulse Ox 99 11/02/19 18:16 Eyes: Positive: Conjunctiva Clear ENT: Positive: Pharyngeal erythema, Nasal congestion, TMs normal Neck: Positive: Supple, Nontender Respiratory: Positive: Decreased breath sounds, Other: - b/l expiratory wheezing , diminised aeration. No increase in work of breathing Cardiovascular: Positive: RRR, No Murmur Abdomen Description: Positive: Soft Diagnostics - Radiology No standard instances Radiology Interpretation Completed By: ED Physician Summary of Radiographic Findings: Peribronchial cuffing. Infiltrate in RML Course/Dx - Course Course Of Treatment: This is a 28 yr old with PMHx of lupus and tobacco use who presents with cough, congestion, CP and SOB Wheezing on exam CXR: Peribronchial cuffing and RML PNA Flu: Negative EKG: NSR Albuterol Neb given alone with Prednisone 60 mg - recheck exam: significant improvement in aeration Wheezing resolved, states she feels better and able to take deep breaths better Augmentin first dose given in urgent care Plan Continue Augmentin as prescribed Start in morning Prednisone as prescribed Continue Albuterol inhaler with spacer 2 puffs every 4 hours as needed for cough or shortness of breath Recommend quit smoking If symptoms persist or worsen, recommend follow up with PCP or return to urgent care If still feeling shortness of breath despite using albuterol inhaler, go to the ER - Diagnoses Provider Diagnosis: Pneumonia, Reactive airway disease Discharge ED - Sign-Out/Discharge Documenting (check all that apply): Patient Departure All imaging exams completed and their final reports reviewed: No - Discharge Plan Condition: Fair Disposition: HOME Prescriptions: Amoxicillin/Clavulanate TAB* [Augmentin TAB 875*] 875 mg PO BID #13 tab predniSONE 20 mg TAB [Deltasone 20 MG TAB*] 40 mg PO DAILY #11 tab Patient Education Materials: Pneumonia (ED), Reactive Airways Disease (ED) Referrals: Daksha Membreno MD [Primary Care Provider] - Additional Instructions: Continue Augmentin as prescribed Start in morning Prednisone as prescribed Continue Albuterol inhaler with spacer 2 puffs every 4 hours as needed for cough or shortness of breath Recommend quit smoking If symptoms persist or worsen, recommend follow up with PCP or return to urgent care If still feeling shortness of breath despite using albuterol inhaler, go to the ER - Billing Disposition and Condition Condition: FAIR Disposition: Home
[2019-11-02 19:15] LABS: Influenza A Molecular Negative (Negative); Influenza B Molecular Negative (Negative)
[2019-11-02] MEDS ORDERED: Albuterol HFA INHALER* 8 gm MDI INH ONE (19:23)
[2019-11-02] MEDS ORDERED: Amoxicillin/Clavulanate TAB* 875 MG PO ONE (19:23)
--- NOTE | 2019-11-03 19:52 | UC ---
- Progress Note Progress Note: Final radiologist reading of chest x-ray from November 02, 2019 comes back as no acute disease process. Provider's interpretation of the same date was peribronchial cuffing and right middle lobe infiltrate. Patient was treated as a pneumonia. Nursing to call Patient and inform them that the radiologist did not see a pneumonia however the patient should continue with the present treatment and follow-up with her primary care physician and get reevaluated if worse. Course/Dx - Diagnoses Provider Diagnoses: Pneumonia, Reactive airway disease Discharge ED - Sign-Out/Discharge Documenting (check all that apply): Patient Departure All imaging exams completed and their final reports reviewed: Yes - Discharge Plan Condition: Fair Disposition: HOME Prescriptions: Amoxicillin/Clavulanate TAB* [Augmentin TAB 875*] 875 mg PO BID #13 tab predniSONE 20 mg TAB [Deltasone 20 MG TAB*] 40 mg PO DAILY #11 tab Patient Education Materials: Reactive Airways Disease (ED), Pneumonia (ED) Referrals: Daksha Membreno MD [Primary Care Provider] - Additional Instructions: Continue Augmentin as prescribed Start in morning Prednisone as prescribed Continue Albuterol inhaler with spacer 2 puffs every 4 hours as needed for cough or shortness of breath Recommend quit smoking If symptoms persist or worsen, recommend follow up with PCP or return to urgent care If still feeling shortness of breath despite using albuterol inhaler, go to the ER - Billing Disposition and Condition Condition: FAIR Disposition: Home
== END 2019-11-02 19:40 | disposition home or self-care (01) ==
LOC: UCCORT 16:18
DX: J18.9 Pneumonia, unspecified organism (principal); J45.909 Unspecified asthma, uncomplicated; J02.9 Acute pharyngitis, unspecified; F17.210 Nicotine dependence, cigarettes, uncomplicated; Z88.6 Allergy status to analgesic agent
CPT/HCPCS: 71046; 93005; 99213; A9270-GY; G0463; J7512